=== PATIENT | male | born 1940 | race Caucasian/White ===

== ENCOUNTER → 2016-09-01 | Outpatient (CLI) | payer OTHER, MEDICAID ==
[2016-03-27 12:11] VITALS: BP 105/59
[2016-09-01 09:07] LABS: BASOPHILS % (AUTO) 0.9 % (0.2-1.0); EOSINOPHILS # (AUTO) 0.1 x10^3/uL (0.0-0.2); HEMATOCRIT 40.7 % (42.0-54.0); HEMOGLOBIN 13.4 g/dL (13.5-18.0); LYMPHOCYTES % (AUTO) 21.9 % (21.0-51.0); MEAN CORPUSCULAR HEMOGLOBIN 26.7 pg (27.0-34.0); MEAN CORPUSCULAR HGB CONC 32.9 g/dL (33.0-35.0); MEAN CORPUSCULAR VOLUME 81.3 fL (80.0-100.0); MEAN PLATELET VOLUME 7.4 fL (7.4-11.0); MONOCYTES # (AUTO) 0.5 x10^3/uL (0.3-0.8); MONOCYTES % (AUTO) 11.6 % (0.0-13.0); NEUTROPHILS # (AUTO) 2.9 x10^3/uL (2.2-4.8); NEUTROPHILS % (AUTO) 62.6 % (42.0-75.0); PLATELET COUNT 129 X10^3/uL (150.0-450.0); RED BLOOD COUNT 5.01 X10^6/uL (4.7-6.0); RED CELL DISTRIBUTION WIDTH 15.3 % (11.6-16.5); WHITE BLOOD COUNT 4.6 X10^3/uL (3.6-10.0)
[2016-09-01 09:28] LABS: HEMOGLOBIN A1C 6.2 % (4.5-6.2)
[2016-09-01 09:36] LABS: RHEUMATOID FACTOR NEGATIVE (NEGATIVE)
[2016-09-01 09:37] LABS: ALANINE AMINOTRANSFERASE 19 Units/L (12-78); ALBUMIN 3.6 g/dL (3.4-5.0); ALKALINE PHOSPHATASE 142 Units/L (46-116); ASPARTATE AMINO TRANSFERASE 14 Units/L (15-37); BLOOD UREA NITROGEN 10 mg/dL (7-18); CALCIUM 9.6 mg/dL (8.5-10.1); CARBON DIOXIDE 29.6 mmol/L (21-32); CHLORIDE 109 mmol/L (98-107); CHOL/HDL RATIO 5.6 (0.0-5.0); CHOLESTEROL 229 mg/dL (0-200); GLUCOSE 100 mg/dL (65-99); HDL CHOLESTEROL 41 mg/dL (40-60); SODIUM 146 mmol/L (136-145); T4 (THYROXINE) 8.7 ug/dL (4.7-13.3); TOTAL PROTEIN 7.7 g/dL (6.4-8.2); TRIGLYCERIDES 149 mg/dL (0-150); TSH (3RD GENERATION) 1.751 uIU/mL (0.358-3.74); URIC ACID 5.1 mg/dL (3.5-7.2); eGFR BLACK RACES > 60 (>60); eGFR NON BLACK RACES > 60 (>60)
[2016-09-01 09:46] LABS: TOTAL PSA < 0.13 ng/mL (0.13-4.0)
--- NOTE | 2016-09-01 09:56 | RAD ---
HISTORY: Low back pain Study: Lumbar spine five view Comparison: None Findings: There is grade 1 anterolisthesis L5 on S1 secondary to degenerative disc and facet degenerative join t disease. The alignment is otherwise normal. Degenerative disc disease is also present at T12-L1, L 1-2, L2-3, L3-4. Diffuse bilateral facet degenerative joint disease is present. No spondylolysis is identified. The pedicles are intact. The SI joints are normal. IMPRESSION: Grade 1 anterolisthesis L5 on S1 secondary to degenerative disc and degenerative joint disease Multilevel degenerative disc disease as described above. Diffuse bilateral facet degenerative joint disease Reported By:
[2016-09-01 10:11] LABS: ERYTHROCYTE SEDIMENTATION RATE 13 MM/HOUR (0-15)
--- NOTE | 2016-09-01 10:12 | RAD ---
HISTORY: Neck pain Study: Cervical spine five view Comparison: None Findings: The prevertebral soft tissues are normal. The alignment is normal. The vertebral bodies are of avera ge height. Degenerative disc disease is present at C5-6 and C6-7. Diffuse bilateral spondylitic [place] narrowing is present. Diffuse bilateral severe ir facet degenerative joint disease is present. IMPRESSION: Degenerative disc disease C5-6, C6-7 Diffuse severe bilateral facet degenerative joint disease Diffuse bilateral spondylitic foraminal narrowing Reported By:
--- NOTE | 2016-09-01 10:12 | RAD ---
HISTORY: Back pain Study: Three views of the thoracic spine Comparison: None Findings: There is dextro curvature of the thoracolumbar spine which may be accentuated by patient position. O therwise the thoracic vertebral body heights are relatively maintained. No evidence of acute displac ed fracture or significant subluxation is identified. Degenerative facet changes are seen throughout the thoracic spine. Multilevel intervertebral disc space narrowing and osteophytosis are also noted . A left-sided cardiac pacemaker is Postoperative changes of midline sternotomy are noted. IMPRESSION: 1. Multilevel degenerative changes as noted above. Reported By:
[2016-09-04 10:12] LABS: VITAMIN D 25 OH 31 ng/mL (30-80)
== END ==
LOC: LAB 08:00
PROVIDERS: ATTEND Nurse Practitioner Family
DX: R53.82 Chronic fatigue, unspecified (principal); M54.5 Low back pain; E78.4 Other hyperlipidemia; M51.36 Other intervertebral disc degeneration, lumbar region; M50.322 Other cervical disc degeneration at C5-C6 level; M50.323 Other cervical disc degeneration at C6-C7 level; E55.9 Vitamin D deficiency, unspecified; R73.9 Hyperglycemia, unspecified; R35.8 Other polyuria; R35.1 Nocturia
CPT/HCPCS: 36415; 72050; 72072; 72110; 80053; 80061; 82306; 83036; 84153; 84436; 84443; 84550; 85025; 85652; 86140; 86200; 86430

== ENCOUNTER 2016-09-28 15:24 | Emergency (ER) | payer OTHER, MEDICAID ==
[2016-09-28 15:34] VITALS: BP 135/70; BMI 29.2
[2016-09-28] MEDS ORDERED: DEPO-Medrol 40 MG VIAL IM ONE (15:56)
--- NOTE | 2016-09-28 16:01 | DR.GENAD ---
HPI - PCP Primary Care Physician: stevo - Complaint/Symptoms Chief Complaint:: left arm numbness for 2 or three days - Nurses notes reviewed Nurses Notes Review: Yes - Source History Provided: Patient - Mode of Arrival Mode of Arrival: Ambulatory - Timing Onset of Chief Complaint: 09/26/16 PMH - PMH Past Medical History: Yes Past Medical History: Coronary Artery Disease, GERD, Hypertension, [place] Past Medical History Comment: rectal cancer Past Surgical History: Yes Surgical History: Bowel Resection, CABG/Valve Surgery, Joint Replacement Past Surgical History Comment: right shoulder left ankle left total knee - Family History History of Family Medical Conditions: Yes Family Medical History: Cancer, [place], Coronary Artery Disease, Hypertension - Social History Does patient currently use any type of tobacco product: No Have you used tobacco products in the last 12 months: No Type of Tobacco Use: None Does any household member use tobacco: No Alcohol Use: None Do you use any recreational Drugs:: No Lives With: Spouse Lives Where: Home - infectious screening In the last 2 months have you had wt loss of >10#?: NO Have you had fever, night sweats or hemotysis?: No Have you traveled outside the country in the last 6 months?: No Isolation: Standard ROS - Review of Systems Constitutional: No Symptoms Reported Respiratoy: No Symptoms Reported Cardiovascular: No Symptoms Reported Gastrointestinal/Abdominal: No Symptoms Reported Genitourinary: No Symptoms Reported Neurological: No Symptoms Reported Musculoskeletal: Left, Elbow Integumentary: No Symptoms Reported Hematologic/Lymphatic: No Symptoms Reported Endocrine: No Symptoms Reported Psychiatric: No Symptoms Reported All Other Systems: Reviewed and Negative PE - Vital Signs Vitals: Temperature 98.6 F Pulse Rate 77 Respiratory Rate 18 Blood Pressure [Left Arm] 105/59 Blood Pressure [Right Arm] 118/64 Blood Pressure 135/70 O2 Sat by Pulse Oximetry 96 - General Limitations: No Limitations - Chest Chest Inspection: Normal Inspection - Respiratory Respiratory Exam: Normal Lung Sounds Bilat - Cardiovascular Cardiovascular Exam: Regular Rate, Normal Rhythm, Normal Heart Sounds - Extremities Extremities Exam: Other (TTP of left elbow along the medial epicondyle, skin intact, mild erythema) - Neurologic Neurological Exam: Alert, Oriented X3, CN II-XII Intact - Psychiatric Psychiatric Exam: Normal Affect - Skin Skin Exam: Warm, Dry, Intact, Normal Color - Diagnosis Discharge Problem: Epicondylitis elbow, medial, Fracture, radius, head - Discharge Plan Disposition: HOME, SELF-CARE Condition: Stable - Follow ups/Referrals Follow ups/Referrals: NFD,None [Primary Care Provider] - 3 days - Instructions Instructions: Medial Epicondylitis With Rehab-SportsMed Additional Notes - Additional Notes Additional Notes: after verbal consent , the L medial epicondyle area was injected with Depomedrol 20mg with 3mls of lidocaine plain.
[2016-09-28] MEDS ORDERED: DEPO-Medrol 40 MG VIAL ONE (16:12)
--- NOTE | 2016-09-28 17:13 | RAD ---
The three views of the left elbow Indication: There is subtle cortical irregularity involving the radial head/neck junction with offse t of the lateral aspect of the radioarticular surface. There is moderate degenerative change of the proximal radius and ulna. There is displacement of the fat pads consistent with a joint effusion. No localizing soft tissue swelling. Radio capitellar and ulnar humeral joint spaces are decreased cons istent with osteoarthrosis. Ossific density adjacent to the medial humeral condyle suspicious for re mote UCL injury the small ossific density noted adjacent to the radial head also likely represents s equela of lateral ulnar collateral ligamentous injury. Moderate calcified atherosclerotic disease of the proximal forearm artery. Impression: 1. Cortical irregularity within the radial head/neck junction and subtle depression of the lateral a spect of the radioarticular surface likely represents sequela of remote radial head fracture; rima tim clinical correlation is needed. 2. 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 Reported By:
== END 2016-09-28 17:45 | disposition home or self-care (01) ==
LOC: ER 15:47
DX: S52.122A Displaced fracture of head of left radius, initial encounter for closed fracture (principal); M77.00 Medial epicondylitis, unspecified elbow; Y33.XXXA Other specified events, undetermined intent, initial encounter; Y92.9 Unspecified place or not applicable
CPT/HCPCS: 73070; 93005; 93010; 99282; 99283; J1030

== ENCOUNTER → 2016-11-06 | Outpatient (CLI) | payer OTHER, MEDICAID ==
--- NOTE | 2016-11-06 13:23 | NM ---
HISTORY: Multiple joint pain Study: Nuclear medicine total body bone scan Comparison: plain films March 07, 2016, September 01, 2016 Technique: Patient received intravenous injection of 25.58 millicuries technetium 99 MDP. Images wer e obtained 3 hours post injection. Findings: Increase tracer concentration is present in the left glenohumeral and AC joints corresponding to deg enerative change visible on plain films. Increase tracer concentration is noted in the left lower th oracic spine corresponding to spondylitic degenerative change on plain films. Increase tracer concen tration is present at the lumbosacral junction likely in the facet joints where there is degenerativ e change on plain film. Increase tracer concentration is present in the knees bilaterally likely deg enerative in origin. Plain film correlation is recommended. IMPRESSION: Multiple areas of abnormal tracer concentration as described in a distribution suggestive of degener ative joint disease at multiple locations Reported By:
== END | disposition home or self-care (01) ==
LOC: RAD 09:28
PROVIDERS: ATTEND Nurse Practitioner Family
DX: M25.532 Pain in left wrist (principal); M25.511 Pain in right shoulder; M25.512 Pain in left shoulder
CPT/HCPCS: 78306

== ENCOUNTER → 2017-02-16 | Outpatient (CLI) | payer OTHER, MEDICAID ==
[~2017-02-16] MED LIST: NS 100 ML IV 100 ML IV ONE
[2017-02-16 09:35] LABS: CREATININE 1.02 mg/dL (0.70-1.30)
--- NOTE | 2017-02-16 11:23 | CT ---
HISTORY: Memory changes. Study: CT brain with and without contrast Comparison: CT head dated March 07, 2016. Technique: Multiple axial images of the brain were obtained from the skull base to the vertex with/without admin istration of IV contrast. Dose reduction techniques including Automated Exposure Control (AEC) and a djustment of mA and kV were utilized. Findings: No acute intraparenchymal hemorrhage or mass can be identified. No extra-axial fluid collections are seen. No alteration in the attenuation of the brain parenchyma can be identified to suggest acute o r subacute ischemic change. The ventricular system is symmetric and nondilated. The extracranial st ructures are grossly unremarkable. No areas of abnormal contrast enhancement. Visualized vascular structures appear normal. IMPRESSION: No acute intracranial pathology. Reported By:
== END ==
LOC: RAD 08:57
PROVIDERS: ATTEND Nurse Practitioner Family
DX: R41.3 Other amnesia (principal)
CPT/HCPCS: 36415; 70470; 82565; 84520; A4222

== ENCOUNTER → 2017-03-01 | Outpatient (CLI) | payer OTHER, MEDICAID | LOC: RT 14:25 | PROVIDERS: ATTEND Nurse Practitioner Family | DX: R41.3 Other amnesia (principal) | CPT/HCPCS: 95819 ==

== ENCOUNTER → 2017-05-17 | Outpatient (CLI) | payer OTHER, MEDICAID ==
--- NOTE | 2017-05-17 16:59 | RAD ---
History: Left wrist pain Study: AP lateral and oblique views of the left wrist Comparison: None Findings: There is narrowing of the radiocarpal joint space with sclerosis of the navicular. There is extensive peripheral arterial vascular calcification. There is narrowing of the 1st metacarpal-carpa l joint space. There is osteoporosis. 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
== END ==
LOC: RAD 16:30
PROVIDERS: ATTEND Psychiatry & Neurology Neurology
DX: M25.532 Pain in left wrist (principal); M19.032 Primary osteoarthritis, left wrist
CPT/HCPCS: 73100

== ENCOUNTER 2017-06-14 07:13 | Day surgery (SDC) | payer OTHER, MEDICAID ==
[2017-06-14] MEDS ORDERED: D5 LR 1000 ML 1,000 ML IV ONE (07:21)
[2017-06-14] MEDS ORDERED: DIPRIVAN VIAL 20 ML ONE (08:22)
[2017-06-14 09:18] VITALS: BP 128/68
== END 2017-06-14 09:20 | disposition home or self-care (01) ==
LOC: SURG1 07:13
PROVIDERS: ATTEND Internal Medicine Gastroenterology
PROC: 0DBN8ZX Excision of Sigmoid Colon, Via Natural or Artificial Opening Endoscopic, Diagnostic (ICD-10-PCS; principal; 2017-06-14 08:30)
PROC: 0DBK8ZX Excision of Ascending Colon, Via Natural or Artificial Opening Endoscopic, Diagnostic (ICD-10-PCS; principal; 2017-06-14 08:30)
PROC: 0DJD8ZZ Inspection of Lower Intestinal Tract, Via Natural or Artificial Opening Endoscopic (ICD-10-PCS; principal; 2017-06-14 08:30)
DX: K63.5 Polyp of colon (principal); Z85.038 Personal history of other malignant neoplasm of large intestine; Z86.010 Personal history of colon polyps; Z93.3 Colostomy status; D12.2 Benign neoplasm of ascending colon
CPT/HCPCS: 99100; A4217; J3490; J7120

== ENCOUNTER → 2017-08-29 | Outpatient (CLI) | payer OTHER, MEDICAID ==
[2017-08-29 09:56] LABS: FREE T4 (FREE THYROXINE) 1.07 ng/dL (0.76-1.46); T4 (THYROXINE) 8.5 ug/dL (4.7-13.3); TSH (3RD GENERATION) 1.864 uIU/mL (0.358-3.74)
== END ==
LOC: LAB 08:56
PROVIDERS: ATTEND Psychiatry & Neurology Neurology
DX: R41.3 Other amnesia (principal); F03.90 Unspecified dementia, unspecified severity, without behavioral disturbance, psychotic disturbance, mood disturbance, and anxiety
CPT/HCPCS: 36415; 82607; 82746; 84436; 84439; 84443; 84481; 86592